=== PATIENT | male | born 1960 | race Caucasian/White ===

== ENCOUNTER 2019-05-31 14:16 | Emergency (ER) | payer OTHER ==
[2019-05-31 14:28] VITALS: BP 149/67
--- NOTE | 2019-05-31 14:47 | ED Physician Documentation ---
PD HPI UPPER EXT INJURY - Stated complaint Stated Complaint: FOOT PX - Chief complaint Chief Complaint: Ext Problem - History obtained from History obtained from: Patient - History of Present Illness Location: Right (Got up from a sitting position yesterday, his foot was asleep and his weight came down on it wrong. Now has more pain overnight and swelling overnight. No other injuries. He is able to walk normally.) Review of Systems Constitutional: denies: Fever, Chills Cardiac: reports: Reviewed and negative Respiratory: reports: Reviewed and negative GI: reports: Reviewed and negative : reports: Reviewed and negative PD PAST MEDICAL HISTORY - Past Medical History Past Medical History: Yes Cardiovascular: Hypertension, High cholesterol Respiratory: None Neuro: None Endocrine/Autoimmune: None GI: None : None HEENT: None Psych: None Musculoskeletal: None Derm: None - Past Surgical History Past Surgical History: No - Allergies Allergies/Adverse Reactions: Allergies Allergy/AdvReac Type Severity Reaction Status Date / Time No Known Drug Allergies Allergy Verified 05/31/19 14:25 - Social History Does the pt smoke?: Yes Smoking Status: Current every day smoker Does the pt drink ETOH?: Yes Does the pt have substance abuse?: Yes Substance Use and Type: Marijuana - Immunizations Immunizations are current?: Yes - POLST Patient has POLST: No PD ED PE NORMAL - Vitals Vital signs reviewed: Yes - General General: Alert and oriented X 3, No acute distress - Extremities Extremities: Other (There is swelling and some ecchymosis over the top of the foot near the distal second through fourth metatarsals. There is some tenderness in the same area, no tenderness on the plantar surface. No pain with spreading of the toes. No proximal forefoot tenderness or ankle tenderness.) - Neuro Neuro: Alert and oriented X 3, Normal speech Results - Vitals Vitals: Vital Signs - 24 hr 05/31/19 14:25 Temperature 36.4 C L Heart Rate 60 Respiratory 18 Rate Blood Pressure 149/67 H O2 Saturation 97 Oxygen O2 Source Room air - Rads (name of study) R foot XR Radiology: EMP read contemporaneously (Normal) Departure - Departure Disposition: 01 Home, Self Care Clinical Impression: Right foot sprain Qualifiers: Encounter type: initial encounter Qualified Code(s): S93.601A - Unspecified sprain of right foot, initial encounter Condition: Good Record reviewed to determine appropriate education?: Yes Instructions: ED Sprain Foot Comments: Tylenol or ibuprofen as needed for pain. Return for new or worsening symptoms. Follow-up with your doctor in a week if not better. Your blood pressure was elevated today on check into the emergency department. This does not mean that you have hypertension, it is a common phenomenon to come to the emergency department and have elevated blood pressure. I recommend that you see your primary care physician within the week to have it rechecked when you are feeling better. Discharge Date/Time: 05/31/19 15:01
--- NOTE | 2019-05-31 15:05 | XRAY Report ---
Reason: twisted, pain/swelling/bruising Procedure Date: 05/31/2019 Accession Number: [id number] / [id number] Procedure: XR - Foot 3 View RT CPT Code: Final Report FULL RESULT: EXAM: RIGHT FOOT RADIOGRAPHY EXAM DATE: 05/31/2019 02:39 PM. CLINICAL HISTORY: Twisted, pain/swelling/bruising. COMPARISON: None. TECHNIQUE: 3 views. FINDINGS: Bones: Normal. No fractures or bone lesions. Joints: Normal. No subluxations. Soft Tissues: Soft tissue fullness dorsal to metatarsals. Small plantar and posterior calcaneal enthesophytes. IMPRESSION: 1. Dorsal soft tissue swelling. 2. No fracture evident. RADIA
== END 2019-05-31 15:01 | disposition home or self-care (01) ==
LOC: ED 14:16
DX: S93.601A Unspecified sprain of right foot, initial encounter (principal); X50.1XXA Overexertion from prolonged static or awkward postures, initial encounter; Y93.89 Activity, other specified; I10 Essential (primary) hypertension; F17.200 Nicotine dependence, unspecified, uncomplicated
CPT/HCPCS: 99282; 99283

== ENCOUNTER 2021-04-11 11:24 | Observation (INO) | payer OTHER ==
[2021-04-11] MEDS ORDERED: SODIUM CHLORIDE 0.9% 1,000 ML IV STA (11:58)
--- NOTE | 2021-04-11 11:59 | ED Physician Documentation ---
PD HPI ABD PAIN - Stated complaint Stated Complaint: ABD PX - Chief complaint Chief Complaint: Abd Pain - History obtained from History obtained from: Patient - Additional information Additional information: Relatively healthy 60-year-old gentleman albeit with a history of hypertension hypercholesterolemia, also longstanding tobacco abuse 8 out having sushi last night and few hours later developed sudden onset generalized abdominal cramping with feeling of having to have a bowel movement. Subsequently started having diarrhea every couple of hours, after the diarrhea his pain would get better br iefly but then worse again after couple of hours. He is not nauseous per se but feels like he does not want to eat. He had a few drops of bright red blood per rectum mixed with stool on the last episode of bowel movement which necessitated the visit. No history of abdominal surgeries. Last colonoscopy was slightly over 10 years ago without pertinent positive findings per him. Review of Systems Ten Systems: 10 systems reviewed and negative Constitutional: reports: Reviewed and negative Ears: reports: Reviewed and negative Nose: reports: Reviewed and negative Throat: reports: Reviewed and negative Cardiac: reports: Reviewed and negative Respiratory: reports: Reviewed and negative PD PAST MEDICAL HISTORY - Past Medical History Cardiovascular: Hypertension, High cholesterol Respiratory: None Neuro: None Endocrine/Autoimmune: None GI: None : None HEENT: None Psych: None Musculoskeletal: None Derm: None - Past Surgical History Past Surgical History: No - Allergies Allergies/Adverse Reactions: Allergies Allergy/AdvReac Type Severity Reaction Status Date / Time No Known Drug Allergies Allergy Verified 04/11/21 11:54 - Social History Does the pt smoke?: Yes Smoking Status: Current every day smoker Does the pt drink ETOH?: Yes Does the pt have substance abuse?: Yes - Immunizations Immunizations are current?: Yes - POLST Patient has POLST: No PD ED PE NORMAL - Vitals Vital signs reviewed: Yes - General General: Alert and oriented X 3, No acute distress - HEENT HEENT: PERRL, EOMI - Neck Neck: Supple, no meningeal sign, No bony TTP - Cardiac Cardiac: RRR, No murmur - Respiratory Respiratory: No respiratory distress, Clear bilaterally - Abdomen Abdomen: Other (Diminished but not absent bowel tones, soft and nontender throughout.) - Back Back: No CVA TTP, No spinal TTP - Derm Derm: Normal color, Warm and dry - Extremities Extremities: No edema, No calf tenderness / cord - Neuro Neuro: Alert and oriented X 3, Normal speech Results - Vitals Vitals: Vital Signs - 24 hr 04/11/21 04/11/21 11:43 14:24 Temperature 36.1 C L Heart Rate 60 65 Respiratory 16 18 Rate Blood Pressure 162/93 H 162/95 H O2 Saturation 96 99 Oxygen O2 Source Room air - Labs Labs: Laboratory Tests 04/11/21 04/11/21 04/11/21 12:07 12:07 12:07 WBC 23.4 H RBC 5.50 Hgb 15.3 Hct 46.5 MCV 84.5 MCH 27.8 MCHC 32.9 RDW 12.8 Plt Count 348 MPV 10.6 Neut # (Auto) 20.0 H Lymph # (Auto) 2.2 [place] # (Auto) 1.1 H Eos # (Auto) 0.0 Baso # (Auto) 0.1 Absolute Nucleated RBC 0.00 Nucleated RBC % 0.0 Manual Slide Review Indicated WBC Morphology NORMAL APPEARANCE Platelet Estimate NORMAL (130-450,000) Platelet Morphology NORMAL APPEARANCE RBC Morph Micro Appear NORMAL APPEARANCE Sodium 134 L Potassium 3.8 Chloride 102 Carbon Dioxide 23 Anion Gap 9.0 BUN 11 Creatinine 0.7 Estimated GFR (MDRD) 115 Glucose 115 H Lactic Acid 1.5 Calcium 9.1 Total Bilirubin 0.8 AST 26 ALT 53 Alkaline Phosphatase 78 Total Protein 7.3 Albumin 4.5 Globulin 2.8 Albumin/Globulin Ratio 1.6 Lipase 38 - Rads (name of study) CTA abd/pelvis Radiology: EMP read contemporaneously PD MEDICAL DECISION MAKING - ED course Complexity details: re-evaluated patient ED course: 60-year-old gentleman with history of tobacco use presents with sudden onset abdominal pain last night that comes in waves. He is not tender, however that would not preclude a vascular issue such as AAA, mesenteric ischemia, both of which he has risk factors for given his age and smoking status. CT demonstrates a small AAA which was discussed with him and discussed he will need PCP follow-up for monitoring of this. But it also shows concern for isch emic colitis without large vessel occlusion. He has a significant leukocytosis. Our on-call surgeon, Dr. Booth came and saw the patient and will admit for serial exams, IV rehydration, and antibiotics. Departure - Departure Disposition: ED Place in Observation Clinical Impression: Ischemic colitis, AAA (abdominal aortic aneurysm) Condition: Stable
[2021-04-11 12:12] LABS: BASOPHILS # (AUTO) 0.1 10^3/uL (0.0-0.1); BASOPHILS % (AUTO) 0.4 %; EOSINOPHILS % (AUTO) 0.1 %; HCT - HEMATOCRIT 46.5 % (42.0-52.0); HGB - HEMOGLOBIN 15.3 g/dL (14.0-18.0); LYMPHOCYTES # (AUTO) 2.2 10^3/uL (1.5-3.5); LYMPHOCYTES % (AUTO) 9.2 %; MEAN CORPUSCULAR HEMOGLOBIN 27.8 pg (27.0-31.0); MEAN CORPUSCULAR HGB CONC 32.9 g/dL (32.0-36.0); MEAN CORPUSCULAR VOLUME 84.5 fL (80.0-94.0); MEAN PLATELET VOLUME 10.6 fL (7.4-11.4); MONOCYTES # (AUTO) 1.1 10^3/uL (0.0-1.0); MONOCYTES % (AUTO) 4.5 %; NEUTROPHILS % (AUTO) 85.4 %; PLT - PLATELET COUNT 348 10^3/uL (130-450); RED CELL DISTRIBUTION WIDTH 12.8 % (12.0-15.0); WHITE BLOOD COUNT 23.4 x10^3/uL (4.8-10.8)
[2021-04-11 12:14] LABS: SLIDE REVIEW? Indicated
[2021-04-11 12:27] LABS: ALBUMIN 4.5 g/dL (3.2-5.5); ALBUMIN/GLOBULIN RATIO 1.6 (1.0-2.2); BILIRUBIN,TOTAL 0.8 mg/dL (0.2-1.0); CALCIUM 9.1 mg/dL (8.5-10.3); CREATININE 0.7 mg/dL (0.6-1.2); POTASSIUM 3.8 mmol/L (3.5-5.0); TOTAL PROTEIN 7.3 g/dL (6.7-8.2)
[2021-04-11 12:33] LABS: PLATELET ESTIMATE, MANUAL NORMAL (130-450,000) (NORMAL); PLATELET MORPHOLOGY NORMAL APPEARANCE (NORMAL); RBC MORPHOLOGY (MULTIPLE) NORMAL APPEARANCE (NORMAL); WBC MORPHOLOGY (MULTIPLE) NORMAL APPEARANCE (NORMAL)
[2021-04-11] MEDS ORDERED: IOVERSOL 320 100 ML VIAL IVP ONE ×2 (13:00→13:39)
--- NOTE | 2021-04-11 13:48 | CT Report ---
PROCEDURE: ANGIO ABDOMEN/PELVIS W INDICATIONS: abd pain CONTRAST: IV CONTRAST: Optiray 320 ml: 100 PO CONTRAST: *NO PO CONTRAST TECHNIQUE: After the administration of intravenous contrast, 2 and 5 mm sections acquired from the diaphragm to the iliac crests. 3-dimensional maximum intensity projection (MIP) coronal and sagittal reformats, a nd/or 3-dimensional volume rendering reformatting was then performed. For radiation dose reduction, the following was used: automated exposure control, adjustment of mA and/or kV according to patient size. COMPARISON: None. FINDINGS: Image quality: Excellent. Arterial structures: Extensive aortic atherosclerosis. There is an infrarenal abdominal aortic aneury sm measuring approximately 3.2 cm. Single bilateral renal arteries are widely patent. Widely patent c eliac axis, SMA, and RICKY origin. There there is diminished opacification within numerous distal RICKY b ranches including those supplying the left hemicolon and rectum. A focal atherosclerotic calcificatio n is present within a small rent supplying the rectum on series 5 image 106. Iliac artery atheroscler osis without significant stenosis or aneurysm. Visualized proximal femoral arteries are patent. Lung bases: Lung bases are clear. Solid abdominal visceral structures: The solid abdominal visceral structures demonstrate no acute fin ding, with caveat that arterial phase examination is inherently limited. Enteric tract: Distal esophagus and stomach are within normal limits. No acute small bowel finding. D iverticulosis involving most of the left hemicolon including the sigmoid colon. Concentric wall thick ening centered on the splenic flexure involving the distal transverse colon and proximal descending c olon. This is not centered obviously upon a diverticulum but may reflect either diverticulitis or col itis (ischemic versus infectious versus inflammatory). No free fluid or free air. Pelvis: No free pelvic fluid. Urinary bladder and prostate within normal limits. Inguinal surgical cl ips bilaterally. Lymph nodes: No threshold enlarged intra-abdominal, retroperitoneal, pelvic, or a lymph node. Osseous structures: No acute or suspicious osseous lesion. Degenerative changes in the spine. IMPRESSION: Infrarenal abdominal aortic aneurysm measuring up to 3.2 cm. Extensive aortic atherosclerosis. No fin dings of dissection, penetrating atheromatous ulcer, or other acute aortic syndrome. Concentric wall thickening involving the distal transverse and proximal descending colon. Findings mo st likely represent colitis, either ischemic, infectious, or inflammatory. There is diminished opacif ication within the distal small RICKY branches supplying the thickened area of left hemicolon, raising concern for ischemic colitis. Reviewed by: Jc Sarmiento MD on 04/11/2021 1:47 PM PDT Approved by: Jc Sarmiento MD on 04/11/2021 1:47 PM PDT Station ID: [id number]
[2021-04-11] MEDS ORDERED: LACTATED RINGERS 1,000 ML IV STA (14:02)
[2021-04-11] MEDS ORDERED: PIPERACILLIN/TAZOBACTAM 3.375 GM in SODIUM CHLORIDE 0.9% MINIBAG 100 ML IV STA (14:02)
[2021-04-11] MEDS ORDERED: HYDROmorphone 0.5 MG/0.5 ML SYRINGE IVP PRN (14:58)
[2021-04-11] MEDS ORDERED: HYDROcod/ACETAM 5/325 MG TABLET PO PRN (14:58)
[2021-04-11] MEDS ORDERED: ONDANSETRON ODT 4 MG TABLET TL PRN (14:58)
[2021-04-11] MEDS ORDERED: ONDANSETRON 4 MG/2 ML VIAL IVP PRN (14:58)
[2021-04-11] MEDS ORDERED: SODIUM CHLORIDE FLUSH 0.9% 10 ML SYRINGE IVP PRN (14:58)
[2021-04-11] MEDS ORDERED: ZOLPIDEM 5 MG TABLET PO PRN (14:58)
--- NOTE | 2021-04-11 16:23 | HISTORY & PHYSICAL EXAMINATION ---
Chief Complaint - Chief Complaint Chief Complaint: abdominal pain and blood per rectum History of Present Illness - Admitted From Admitted From:: ED - History Obtained From Records Reviewed: yes History obtained from: pt and ED MD Exam Limitations: none - History of Present Illness HPI Comment/Other: He was well yesterday am. Last pm after eating he developed significant abdominal pain and chills. He felt like he needed to have a BM. His pain improved over night; however, this am he had a small bloody bm. He has minimal pain at this time. He is no longer having chills. He has not had similar symptoms. History - Past Medical History Cardiovascular: reports: Hypertension, High cholesterol Respiratory: reports: None Neuro: reports: None Endocrine/Autoimmune: reports: None GI: reports: None : reports: None HEENT: reports: None Psych: reports: None Musculoskeletal: reports: None Derm: reports: None MRSA Hx?: No - POLST Patient has POLST: No Meds/Allgy - Allergies Allergies/Adverse Reactions: Allergies Allergy/AdvReac Type Severity Reaction Status Date / Time No Known Drug Allergies Allergy Verified 04/11/21 11:54 Review of Systems - Other Findings Other Findings: 10 pt ros as above otherwise unremarkable Exam - Vital Signs Reviewed Vital Signs: Yes Vital Signs: Vital Signs x48h Temp Pulse Pulse Resp BP BP Pulse Ox 04/11/21 15:49 37.2 C 63 16 161/88 H 97 04/11/21 14:24 65 18 162/95 H 99 04/11/21 11:43 36.1 C L 60 16 162/93 H 96 - Physical Exam General Appearance: positive: No acute distress, Alert Eyes Bilateral: positive: PERRL, EOMI ENT: positive: No signs of dehydration Neck: positive: No JVD Respiratory: positive: No respiratory distress, Breath sounds nml Cardiovascular: positive: Regular rate & rhythm Abdomen: positive: No distention, Other (minimal tenderness. No peritoneal signs or guarding.) Neurologic/Psychiatric: positive: Oriented x3 Conclusion/Plan - Problem List (1) Ischemic colitis Conclusion/Plan: Admit close observation bowel rest IV abxs - Lab Results Fish Bones: 04/11/21 12:07 04/11/21 12:07 - Diagnostic Imaging Results Diagnostic Imaging Results: positive: Final report reviewed, Read independently (colitis possible ischemic bowel splenic flexure area diverticulosis without diverticulitis)
[2021-04-11 16:32] LABS: B. PARAPERTUSSIS- RESP PCR PAN NOT DETECTED; B. PERTUSSIS- RESP PCR PANEL NOT DETECTED; C. PNEUMONIAE- RESP PCR PANEL NOT DETECTED; CORONAVIRUS 229E-RESP PCR NOT DETECTED; CORONAVIRUS HKU1-RESP PCR NOT DETECTED; CORONAVIRUS NL63-RESP PCR NOT DETECTED; CORONAVIRUS OC43-RESP PCR NOT DETECTED; HUMAN METAPNEUMOVIRUS NOT DETECTED; INFLUENZA A- RESP PCR PANEL NOT DETECTED; INFLUENZA B - RESP PCR PANEL NOT DETECTED; M. PNEUMONIAE- RESP PCR PANEL NOT DETECTED; PARAINFLUENZA VIRUS 1 NOT DETECTED; PARAINFLUENZA VIRUS 2 NOT DETECTED; PARAINFLUENZA VIRUS 3 NOT DETECTED; PARAINFLUENZA VIRUS 4 NOT DETECTED; RHINOVIRUS/ENTEROVIRUS NOT DETECTED; RSV- RESP PCR PANEL NOT DETECTED; SARS-CoV-2 -RESP PCR PANEL NOT DETECTED
[2021-04-11] MEDS: D5.45NS W/20 MEQ KCL 1,000 ML IV SCH (18:31)
[2021-04-11] MEDS: SODIUM CHLORIDE FLUSH 0.9% 10 ML SYRINGE IVP SCH (18:32)
[2021-04-11] MEDS: PIPERACILLIN/TAZOBACTAM 3.375 GM in SODIUM CHLORIDE 0.9% MINIBAG 100 ML IV SCH ×2 (18:32→23:44)
[2021-04-12] MEDS: SODIUM CHLORIDE FLUSH 0.9% 10 ML SYRINGE IVP SCH ×4 (04:58→23:54)
[2021-04-12] MEDS: D5.45NS W/20 MEQ KCL 1,000 ML IV SCH ×4 (04:58→22:28)
[2021-04-12] MEDS: PIPERACILLIN/TAZOBACTAM 3.375 GM in SODIUM CHLORIDE 0.9% MINIBAG 100 ML IV SCH ×4 (05:32→23:57)
[2021-04-12 06:07] LABS: HCT - HEMATOCRIT 45.8 % (42.0-52.0); HGB - HEMOGLOBIN 15.1 g/dL (14.0-18.0); MEAN CORPUSCULAR HEMOGLOBIN 28.5 pg (27.0-31.0); MEAN CORPUSCULAR VOLUME 86.4 fL (80.0-94.0); RED BLOOD COUNT 5.3 10^6/uL (4.70-6.10); WHITE BLOOD COUNT 16.7 x10^3/uL (4.8-10.8)
[2021-04-12 06:14] LABS: ALBUMIN 4.1 g/dL (3.2-5.5); ALBUMIN/GLOBULIN RATIO 1.4 (1.0-2.2); BILIRUBIN,TOTAL 1.3 mg/dL (0.2-1.0); CALCIUM 8.9 mg/dL (8.5-10.3); CREATININE 0.8 mg/dL (0.6-1.2); POTASSIUM 3.9 mmol/L (3.5-5.0)
--- NOTE | 2021-04-12 09:18 | PHARMACY PROGRESS NOTE ---
- Best Possible Medication History Admit Date and Time: 04/11/21 1458 Processed by: Pharmacy Medication History completed: Yes Patient Interview: Pt unable to participate Secondary Source(s): Insurance records As the person ultimately responsible for medication therapy, providers are able to order a medication from an existing home medication list in [facility] via the "Reconcile Routine" prior to Confirmation of that medication by call center support representative. Such practice is discouraged except when the physician, in their clinical judgment, deems that a medical need exists for a medication without regard to previous use.
--- NOTE | 2021-04-12 12:20 | PROVIDER PROGRESS NOTE ---
Subjective - Prog Note Date Prog Note Date: 04/12/21 - Subjective Pt reports feeling: Improved (passing some gas. no bm) Objective - Vital Signs/Intake & Output Reviewed Vital Signs: Yes Vital Signs: Vital Signs x48h Temp Pulse Resp BP Pulse Ox 04/12/21 11:40 36.6 C 59 L 18 154/88 H 99 04/12/21 07:45 37.1 C 57 L 18 141/65 H 97 04/12/21 05:17 36.7 C 65 16 167/85 H 97 Intake & Output: Intake & Output 04/09/21 04/10/21 04/11/21 04/12/21 23:59 23:59 23:59 23:59 Intake Total 2710.416 1437.501 Balance 2710.416 1437.501 - Objective General Appearance: positive: No acute distress, Alert Eyes Bilateral: positive: PERRL, EOMI, No scleral icterus ENT: positive: No signs of dehydration Neck: positive: No JVD Respiratory: positive: No respiratory distress Abdomen: positive: No distention, Other (minimal tenderness. benign abdomen) Neurologic/Psychiatric: positive: Oriented x3 - Lab Results Fish Bones: 04/12/21 05:44 04/12/21 05:44 Other Labs: Lab Results x24hrs 04/12/21 04/12/21 04/11/21 Range/Units 05:44 05:44 15:29 WBC 16.7 H (4.8-10.8) x10^3/uL RBC 5.30 (4.70-6.10) 10^6/uL Hgb 15.1 (14.0-18.0) g/dL Hct 45.8 (42.0-52.0) % MCV 86.4 (80.0-94.0) fL MCH 28.5 (27.0-31.0) pg MCHC 33.0 (32.0-36.0) g/dL RDW 13.0 (12.0-15.0) % Plt Count 303 (130-450) 10^3/uL MPV 11.0 (7.4-11.4) fL Neut # (Auto) (1.5-6.6) 10^3/uL Lymph # (Auto) (1.5-3.5) 10^3/uL [place] # (Auto) (0.0-1.0) 10^3/uL Eos # (Auto) (0.0-0.7) 10^3/uL Baso # (Auto) (0.0-0.1) 10^3/uL Absolute Nucleated RBC x10^3/uL Nucleated RBC % /100WBC Manual Slide Review WBC Morphology (NORMAL) Platelet Estimate (NORMAL) Platelet Morphology (NORMAL) RBC Morph Micro Appear (NORMAL) Sodium 132 L (135-145) mmol/L Potassium 3.9 (3.5-5.0) mmol/L Chloride 98 L (101-111) mmol/L Carbon Dioxide 25 (21-32) mmol/L Anion Gap 9.0 (6-13) BUN 7 (6-20) mg/dL Creatinine 0.8 (0.6-1.2) mg/dL Estimated GFR (MDRD) 98 (>89) Glucose 136 H (70-100) mg/dL Lactic Acid (0.5-2.2) mmol/L Calcium 8.9 (8.5-10.3) mg/dL Total Bilirubin 1.3 H (0.2-1.0) mg/dL AST 21 (10-42) IU/L ALT 41 (10-60) IU/L Alkaline Phosphatase 77 (42-121) IU/L Total Protein 7.0 (6.7-8.2) g/dL Albumin 4.1 (3.2-5.5) g/dL Globulin 2.9 (2.1-4.2) g/dL Albumin/Globulin Ratio 1.4 (1.0-2.2) Lipase (22-51) U/L Nasal Adenovirus (PCR) NOT DETECTED Nasal B. parapertussis DNA (PCR) NOT DETECTED Nasal Coronavir 229E PCR NOT DETECTED Nasal Coronavir HKU1 PCR NOT DETECTED Nasal Coronavir NL63 PCR NOT DETECTED Nasal Coronavir OC43 PCR NOT DETECTED Nasal Enterovir/Rhinovir PCR NOT DETECTED Nasal Influenza B PCR NOT DETECTED Nasal Influenza A PCR NOT DETECTED Nasal Parainfluen 1 PCR NOT DETECTED Nasal Parainfluen 2 PCR NOT DETECTED Nasal Parainfluen 3 PCR NOT DETECTED Nasal Parainfluen 4 PCR NOT DETECTED Nasal RSV (PCR) NOT DETECTED Nasal B.pertussis DNA PCR NOT DETECTED Nasal C.pneumoniae (PCR) NOT DETECTED [place] Human Metapneumo PCR NOT DETECTED Nasal M.pneumoniae (PCR) NOT DETECTED Nasal SARS-CoV-2 (PCR) NOT DETECTED 04/11/21 04/11/21 04/11/21 Range/Units 12:07 12:07 12:07 WBC (4.8-10.8) x10^3/uL RBC (4.70-6.10) 10^6/uL Hgb (14.0-18.0) g/dL Hct (42.0-52.0) % MCV (80.0-94.0) fL MCH (27.0-31.0) pg MCHC (32.0-36.0) g/dL RDW (12.0-15.0) % Plt Count 348 (130-450) 10^3/uL MPV 10.6 (7.4-11.4) fL Neut # (Auto) 20.0 H (1.5-6.6) 10^3/uL Lymph # (Auto) 2.2 (1.5-3.5) 10^3/uL [place] # (Auto) 1.1 H (0.0-1.0) 10^3/uL Eos # (Auto) 0.0 (0.0-0.7) 10^3/uL Baso # (Auto) 0.1 (0.0-0.1) 10^3/uL Absolute Nucleated RBC 0.00 x10^3/uL Nucleated RBC % 0.0 /100WBC Manual Slide Review Indicated WBC Morphology NORMAL APPEARANCE (NORMAL) Platelet Estimate NORMAL (130-450,000) (NORMAL) Platelet Morphology NORMAL APPEARANCE (NORMAL) RBC Morph Micro Appear NORMAL APPEARANCE (NORMAL) Sodium 134 L (135-145) mmol/L Potassium 3.8 (3.5-5.0) mmol/L Chloride 102 (101-111) mmol/L Carbon Dioxide 23 (21-32) mmol/L Anion Gap 9.0 (6-13) BUN 11 (6-20) mg/dL Creatinine 0.7 (0.6-1.2) mg/dL Estimated GFR (MDRD) 115 (>89) Glucose 115 H (70-100) mg/dL Lactic Acid 1.5 (0.5-2.2) mmol/L Calcium 9.1 (8.5-10.3) mg/dL Total Bilirubin 0.8 (0.2-1.0) mg/dL AST 26 (10-42) IU/L ALT 53 (10-60) IU/L Alkaline Phosphatase 78 (42-121) IU/L Total Protein 7.3 (6.7-8.2) g/dL Albumin 4.5 (3.2-5.5) g/dL Globulin 2.8 (2.1-4.2) g/dL Albumin/Globulin Ratio 1.6 (1.0-2.2) Lipase 38 (22-51) U/L Nasal Adenovirus (PCR) Nasal B. parapertussis DNA (PCR) Nasal Coronavir 229E PCR Nasal Coronavir HKU1 PCR Nasal Coronavir NL63 PCR Nasal Coronavir OC43 PCR Nasal Enterovir/Rhinovir PCR Nasal Influenza B PCR Nasal Influenza A PCR Nasal Parainfluen 1 PCR Nasal Parainfluen 2 PCR Nasal Parainfluen 3 PCR Nasal Parainfluen 4 PCR Nasal RSV (PCR) Nasal B.pertussis DNA PCR Nasal C.pneumoniae (PCR) [place] Human Metapneumo PCR Nasal M.pneumoniae (PCR) Nasal SARS-CoV-2 (PCR) - Diagnostic Imaging Diagnostic Imaging Results: positive: Read independently Assessment/Plan - Problem List (1) Ischemic colitis Impression: improved. passing gas. minimal pain. wbc done. diet clears continue iv abxs and close observation if wbc down tomorrow and tolerating clears plan home tomorrow on clears and oral antibiotics with close follow up surgery office plan colonoscopy when symptoms have resolved
[2021-04-12] MEDS: ACETAMINOPHEN 325 MG TABLET PO PRN (14:05)
[2021-04-13] MEDS: PIPERACILLIN/TAZOBACTAM 3.375 GM in SODIUM CHLORIDE 0.9% MINIBAG 100 ML IV SCH (05:45)
[2021-04-13] MEDS: D5.45NS W/20 MEQ KCL 1,000 ML IV SCH (05:46)
[2021-04-13] MEDS: SODIUM CHLORIDE FLUSH 0.9% 10 ML SYRINGE IVP SCH (07:39)
[2021-04-13] MEDS: ACETAMINOPHEN 325 MG TABLET PO PRN (07:49)
--- NOTE | 2021-04-13 10:10 | Discharge Plan ---
Discharge Plan Problem Reviewed?: Yes Disposition: Home, Self Care Condition: Good Prescriptions: Amox/Clav 875/125 [Augmentin 875/125 Tab] 1 tablet PO Q8H 7 Days #21 tablet Diet: Soft (liquid, soft, low fiber for about a week and then advance as tolerated) Activity Restrictions: No Restrictions Shower Restrictions: No Driving Restrictions: No Plan of Treatment: follow up surgery in 1 to 2 weeks call with any concerns and to make an appointment [phone] Assessment: doing well after medical management with bowel rest and iv antibiotics No Smoking: If you smoke, Please STOP! Call for help. Follow-up with: DALTON COTA MD [Primary Care Provider] - Deny Booth MD [Provider Admit Priv/Credential] -
--- NOTE | 2021-04-13 10:12 | DISCHARGE SUMMARY ---
"Discharge Summary Admit Date: 04/11/21 Discharge Date: 04/13/21 Discharging Provider: jo sherman Code Status: Attempt Resuscitation [facility] - DIAGNOSES Admission Diagnoses: colitis likely ischemic Discharge Diagnoses with Status of Each Condition: home in good condition - HPI History of Present Illness: present with acute pain and blood per rectum. ct most consistent with ischemic colitis. quickly improved with bowel rest and iv abxs - CONSULTS | PROCEDURES Procedures: none - HOSPITAL COURSE Hospital Course: as above. home tolerating clears well, return of bowel function with normal bm/ non bloody. - ALLERGIES Allergies/Adverse Reactions: Allergies Allergy/AdvReac Type Severity Reaction Status Date / Time No Known Drug Allergies Allergy Verified 04/11/21 11:54 - MEDICATIONS Home Medications: Ambulatory Orders Medication Instructions Recorded Confirmed Aspirin [Aspirin EC] 81 mg PO DAILY 04/12/21 04/12/21 Atorvastatin Calcium 40 mg PO QPM 04/12/21 04/12/21 Amox/Clav 875/125 [Augmentin 1 tablet PO Q8H 7 Days #21 tablet 04/13/21 875/125 Tab] - PHYSICAL EXAM AT DISCHARGE General Appearance: positive: No acute distress, Alert Eyes Bilateral: positive: PERRL, EOMI Neck: positive: No JVD Respiratory: positive: No respiratory distress Abdomen: positive: Non-tender, No distention Neurologic/Psychiatric: positive: Oriented x3 - LABS Result Diagrams: 04/12/21 05:44 04/12/21 05:44 - FOLLOW UP Follow Up: call surgery with any concerns and to make an appointment [phone]"
[2021-04-13 10:56] VITALS: BP 158/98
== END 2021-04-13 11:10 | disposition home or self-care (01) ==
LOC: ED 11:24 → MS2 14:58
PROVIDERS: ADMIT Surgery; ATTEND Surgery
DX: K52.9 Noninfective gastroenteritis and colitis, unspecified (principal); K57.30 Diverticulosis of large intestine without perforation or abscess without bleeding; I71.4 Abdominal aortic aneurysm, without rupture; I70.0 Atherosclerosis of aorta; I10 Essential (primary) hypertension; E78.00 Pure hypercholesterolemia, unspecified; F17.200 Nicotine dependence, unspecified, uncomplicated; Z20.822 Contact with and (suspected) exposure to COVID-19
CPT/HCPCS: 0202U; 36415; 74174; 80053; 83605; 83690; 85025; 85027; 96365; 96366; 96376; 99284; 99285; A9270; G0378; J7120; Q9967

== ENCOUNTER 2021-04-14 10:25 | Emergency (ER) | payer OTHER ==
[2021-04-14] MEDS ORDERED: AMOX/CLAV 875 MG/125 MG TABLET PO STA (11:33)
--- NOTE | 2021-04-14 11:36 | ED Physician Documentation ---
History of Present Illness - Stated complaint Stated Complaint: NEEDS MEDICATION - Chief complaint Chief Complaint: General - Additonal information Additional information: 60-year-old male here for a refill of his Augmentin. Discharge from the hospital on 11 April after a bout of diverticulitis. He had been told that his Augmentin prescription had been sent electronically to the [facility] but after 48 hours of trying to fill the prescription it has not been sent. He is here today to get this medication filled. Since discharge no fevers, normal bowel movements no pain. Feeling markedly better. Review of Systems Constitutional: reports: Reviewed and negative Ears: reports: Reviewed and negative Nose: reports: Reviewed and negative Throat: reports: Reviewed and negative Cardiac: reports: Reviewed and negative Respiratory: reports: Reviewed and negative GI: reports: Reviewed and negative : reports: Reviewed and negative PD PAST MEDICAL HISTORY - Past Medical History Cardiovascular: Hypertension, High cholesterol Respiratory: None Neuro: None Endocrine/Autoimmune: None GI: None : None HEENT: None Psych: None Musculoskeletal: None Derm: None - Past Surgical History Past Surgical History: No - Present Medications Home Medications: Ambulatory Orders Medication Instructions Recorded Confirmed Aspirin [Aspirin EC] 81 mg PO DAILY 04/12/21 04/12/21 Atorvastatin Calcium 40 mg PO QPM 04/12/21 04/12/21 Amox/Clav 875/125 [Augmentin 1 tablet PO Q8H 7 Days #21 tablet 04/13/21 875/125 Tab] Amox/Clav 875/125 [Augmentin] 1 each PO TID #21 tablet 04/14/21 - Allergies Allergies/Adverse Reactions: Allergies Allergy/AdvReac Type Severity Reaction Status Date / Time No Known Drug Allergies Allergy Verified 04/14/21 10:37 - Social History Does the pt smoke?: Yes Smoking Status: Current every day smoker Does the pt drink ETOH?: Yes Does the pt have substance abuse?: Yes - Immunizations Immunizations are current?: Yes - POLST Patient has POLST: No PD ED PE NORMAL - General General: Alert and oriented X 3, No acute distress - HEENT HEENT: PERRL - Neck Neck: Supple, no meningeal sign - Cardiac Cardiac: RRR, No murmur - Respiratory Respiratory: Clear bilaterally - Abdomen Abdomen: Normal bowel sounds, Soft, Non tender, Non distended - Rectal Rectal: Deferred - Back Back: No CVA TTP - Derm Derm: Warm and dry - Extremities Extremities: No deformity - Neuro Neuro: Alert and oriented X 3, comb tender 2-12 intact Eye Opening: Spontaneous Motor: Obeys Commands Verbal: Oriented GCS Score: 15 Results - Vitals Vitals: Vital Signs - 24 hr 04/14/21 10:29 Temperature 36.9 C Heart Rate 57 L Respiratory 18 Rate Blood Pressure 155/80 H O2 Saturation 95 Oxygen O2 Source Room air PD MEDICAL DECISION MAKING - ED course Complexity details: d/w patient ED course: 60-year-old male here for a Augmentin prescription that was not filled after discharge from the hospital for recent diverticulitis. Unable to get the prescription filled through his primary or surgical services thus he presents here. Reports improved lower abdominal pain. No fevers normal bowel movement this morning nonbloody. Prescription for Augmentin electronically sent to the [facility] in [place]. Departure - Departure Disposition: Home, Self Care Clinical Impression: Encounter for medication refill, Diverticulitis Condition: Stable Record reviewed to determine appropriate education?: Yes Prescriptions: Amox/Clav 875/125 [Augmentin] 1 each PO TID #21 tablet Comments: Ren your prescription for the Augmentin has been sent electronically to the [facility] in [place]. Please fill the prescription today and take as directed. Continue follow-up with Dr. Booth and your primary care provider. If any point you develop sudden severe lower abdominal pain have bloody stools or fevers then please return to the ER for second evaluation.
[2021-04-14 11:46] VITALS: BP 144/93
== END 2021-04-14 11:51 | disposition home or self-care (01) ==
LOC: ED 10:25
DX: Z76.0 Encounter for issue of repeat prescription (principal); K57.92 Diverticulitis of intestine, part unspecified, without perforation or abscess without bleeding; I10 Essential (primary) hypertension; F17.200 Nicotine dependence, unspecified, uncomplicated; Z79.82 Long term (current) use of aspirin
CPT/HCPCS: 99281; A9270